=== PATIENT | female | born 2000 | race Asian ===

== ENCOUNTER 2023-08-09 11:58 | Outpatient (AMB) | payer BC, SELFPAY ==
--- NOTE | 2023-08-09 12:04 | MHC.OFFVIS ---
Vital Signs 08/09/23 12:06 Height 5 ft 1 in Weight 180 lb BMI 34.0 BP 114/57 L Blood Pressure Location Lt brachial Position Sitting Pulse 73 Intake Visit Reasons: Nausea/vomiting/adb pain Intake Note: Patient new consult for N/V and abdominal pain. Patient cc: lower abdominal pain/bloating, black diarrhea, acid reflex with burning sensation, and some fatigue. 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 Accompanied by: Self / Same As Patient Allergies No Known Allergies Allergy (Verified 08/09/23 12:01) Medication List - Last Reconciled 08/09/23 by Svetlana Wood PA-C ferrous sulfate 325 mg PO DAILY naproxen 500 mg PO ONCE HPI Comments Details: A 23 y/o F referred with chronic N/V/D - acid reflux for ever the last 4 years-overall symptoms have improved over the past couple weeks Lower abdominal pain-mild, Diarrhea about once a week or every 2 weeks nausea- with reflux- not always- no medications-fatigued- Weight gain about 30 pounds Black diarrhea- iron supplements-heavy periods omits some dairy- Started excercise-- 2 weeks ago Labs from portal normal cbc, cmp, tsh- PFSH Social History Household Members: Family Alcohol intake: current Alcohol intake frequency: holidays/special occasions only Patient Tobacco Use Status: Never used Tobacco Use of substances other than those prescribed or required for medical reasons: Yes Review of Systems Const All systems reviewed & are unremarkable except as noted in HPI and below Card Denies chest pain and Denies dyspnea Resp Denies dyspnea GI Denies hematochezia, Reports GI cramping, Reports heartburn, Reports loose stools, Reports nausea and Denies vomiting Physical Exam Vital Signs: Last Vital Signs Pulse 73 08/09/23 12:06 BP 114/57 L 08/09/23 12:06 BMI result Body Mass Index 34.0 Const General: cooperative, healthy appearing, comfortable and no acute distress Orientation/consciousness: patient oriented x3 Limitations: no limitations Eyes Sclerae: sclerae normal Resp Effort & Inspection: normal respiratory effort and able to speak in complete sentences Auscultation: clear to auscultation bilaterally Cardio Rate: regular rate Rhythm: regular rhythm Heart sounds: S1 normal heart sound present and S2 normal heart sound present GI Palpation (GI): Soft to palpation, Tenderness to palpation present (GI) (mild) suprapubicly, no guarding and No Rebound tenderness present Auscultation: normal bowel sounds Skin General skin exam: no rashes or lesions noted Neuro General: patient oriented x3 Extrem General: Yes full ROM Psych Appearance: well kempt Mental Status: mental status grossly normal Speech and movement: Normal speech and movement present Affect: normal affect Attitude: cooperative Thought process: Normal thought process present Thought content: Normal thought content present Insight: Good insight present (Psych) Judgement: Good judgement present (Psych) Results Reviewed Results Reviewed: Labs from 05/25/2023-patient report Normal liver enzymes Normal CBC Celiac markers-normal Assessment & Plan Assessment & Plan (1) IBS (irritable bowel syndrome): Comment: Vague chronic GI complaints for the past 4 years-she has noted improvement over the past 2 weeks She is just graduated from [facility] Code(s): K58.9 - Irritable bowel syndrome without diarrhea Category: Medical Plan: Continue to monitor symptoms- (2) Chronic diarrhea: Comment: Loose stool once week-may be functional Code(s): K52.9 - Noninfective gastroenteritis and colitis, unspecified Category: Medical Plan: Monitor sx Plan Will get CRP sed rate as well as stool calprotectin and H pylori Patient to call for results Orders: Orders C Reactive Protein Today K52.9 - Noninfective gastroenteritis and colitis, unspecified, K58.9 - Irritable bowel syndrome without diarrhea H pylori Ag Stool Today A04.8 - Other specified bacterial intestinal infections Calprotectin, Fecal Today R19.7 - Diarrhea, unspecified Erythrocyte Sedimentation Rate Today R19.7 - Diarrhea, unspecified Patient Instructions: May have functional component Reviewed history for years chronic symptoms now improved over the past 2 weeks since graduation However will further evaluate Will get CRP sed rate as well as stool calprotectin and H pylori-she will call for results Encouraged to call questions or concerns Coding Level of Care Code New Pt Level 3 (20068) Diagnoses IBS (irritable bowel syndrome) K58.9 Chronic diarrhea K52.9 Time Spent (min) 30
[2023-08-09 12:06] VITALS: BP 114/57; PULSE 73; BMI 34.0
== END 2023-08-09 14:15 | disposition home or self-care (01) ==
PROVIDERS: Visit Provider Physician Assistant
DX: K58.0 Irritable bowel syndrome with diarrhea (principal)
CPT/HCPCS: 99203

== ENCOUNTER 2023-08-09 11:58 | Outpatient (REF) | payer BC, SELFPAY ==
[2023-08-09 14:33] LABS: Erythrocyte Sedimentation Rate 9 MM/HR (0-20)
== END 2023-08-09 11:59 | disposition home or self-care (01) ==
LOC: HO.LAB 11:58
PROVIDERS: Visit Provider Physician Assistant
DX: K52.9 Noninfective gastroenteritis and colitis, unspecified (principal); K58.9 Irritable bowel syndrome, unspecified; R19.7 Diarrhea, unspecified
CPT/HCPCS: 36415; 85652; 86140

== ENCOUNTER 2023-08-10 10:50 | Outpatient (REF) | payer BC, SELFPAY ==
[2023-08-16 18:39] LABS: Calprotectin, Fecal 11 mcg/g
== END 2023-08-10 10:51 | disposition home or self-care (01) ==
LOC: HO.LNP 10:50
PROVIDERS: Visit Provider Physician Assistant
DX: A04.8 Other specified bacterial intestinal infections (principal); R19.7 Diarrhea, unspecified
CPT/HCPCS: 83993; 87338